=== PATIENT | female | born 2000 | race Two or more races ===

== ENCOUNTER 2023-02-24 22:01 | Emergency (ER) | payer MEDICAID, OTHER ==
[~2023-02-24] VITALS: Ht 165.1 cm; Wt 77.5 kg
[2023-02-24] MEDS ORDERED: LORazepam 0.5 MG TAB PO ONE (23:30)
[2023-02-24 23:45] LABS: Basophils # (auto) 0.1 10 ^3/uL (0-0.2); Basophils % (auto) 1.1 % (0.0-2.0); Eosinophils # (auto) 0.4 10 ^3/uL (0-0.8); Hematocrit 36.8 % (36.0-46.0); Lymphocytes # (auto) 1.8 10 ^3/uL (0.4-5.4); Lymphocytes % (auto) 21.6 % (10.0-50.0); Mean Corpuscular Hemoglobin 27.1 pg (28.0-32.0); Mean Corpuscular Hgb Conc. 32.5 g/dL (32.0-36.0); Mean Corpuscular Volume 83.3 fL (80.0-100.0); Monocytes # (auto) 0.4 10 ^3/uL (0-1.3); Monocytes % (auto) 5.2 % (0.0-12.0); Neutrophils # (auto) 5.5 10 ^3/uL (1.6-8.6); Neutrophils % (auto) 67.1 % (37.0-80.0); Red Blood Cells 4.42 10^6/uL (4.0-5.20); Red Cell Distribution Width 17.8 % (11.8-14.3); White Blood Cell 8.2 10^3/uL (4.4-10.8)
[2023-02-25 00:04] LABS: Albumin 3.7 g/dL (3.4-5.0); Calcium 8.6 mg/dL (8.5-10.1); Potassium 4.5 mmol/L (3.5-5.1)
[2023-02-25 00:05] LABS: Acetaminophen < 2.0 ug/mL (10-30); Salicylate < 1.7 mg/dL (2.8-20.0)
[2023-02-25 00:07] LABS: BUN/Creatinine Ratio 9.8 (10.0-20.0)
[2023-02-25 00:14] LABS: Bilirubin, Total 0.2 mg/dL (0.2-1.0); Total Protein 7.1 g/dL (6.4-8.2)
[2023-02-25] MEDS ORDERED: diphenhdrAMINE HCL 25 MG CAP PO ONE (04:00)
[2023-02-25 04:45] LABS: Alcohol, Urine < 3.0 mg/dL (0-10); Amphetamine Screen, Urine NEGATIVE (NEGATIVE); Barbiturate Scree,Urine NEGATIVE (NEGATIVE); Benzodiazephine Screen, Urine POSITIVE (NEGATIVE); Cannabinoid Screen, Urine NEGATIVE (NEGATIVE); Opiate Scree,Urine NEGATIVE (NEGATIVE)
[2023-02-25 04:59] LABS: Cocaine Screen, Urine NEGATIVE (NEGATIVE); Phencyclidine Screen, Urine NEGATIVE (NEGATIVE)
[2023-02-25 09:00] VITALS: BP 123/77
[2023-02-25] MEDS ORDERED: SERT50TA PO (11:33)
[2023-02-26] MEDS ORDERED: SERTRALINE HCL 50 MG TAB PO SCH (07:00)
== END 2023-02-25 13:03 | disposition home or self-care (01) ==
LOC: EDBD 22:01 → ER 22:01
DX: T47.1X2A Poisoning by other antacids and anti-gastric-secretion drugs, intentional self-harm, initial encounter (principal); Y92.89 Other specified places as the place of occurrence of the external cause
CPT/HCPCS: 36415; 70450; 71045; 80053; 80307; 80320; 80329; 84484; 85025

== ENCOUNTER 2024-09-17 09:08 | Emergency (ER) | payer MEDICAID ==
[~2024-09-17] VITALS: Ht 165.1 cm; Wt 68.0 kg
[~2024-09-17 09:08] MED LIST: SERT50TA PO
[2024-09-17 09:15] VITALS: BP 142/67; PULSE 89; RESP 18; TEMP 98.4; O2SAT 98
--- NOTE | 2024-09-17 09:51 | ED.PDOC ---
Back pain HPI HPI Comments A 24-YEAR-OLD FEMALE PRESENTS WITH A CHIEF COMPLAINT OF RIGHT MIDDLE RIBS MUSCULOSKELETAL PAIN. PATIENT STATES THAT HER PAIN IS MADE WORSE WITH SNEEZING, COUGHING, AND MOVEMENT, RESTING DECREASES THE PAIN. PATIENT DENIES ANY INJURIES OR TRAUMA PRIOR TO ONSET OF SYMPTOMS. PT DENIES FEVER, SOB, CHEST PAIN, ABD PAIN, NAUSEA, VOMITING AND OTHER COMPLAINTS. NO OTHER SYMPTOMS OR MODIFYING FACTORS PRESENT AT THIS TIME. Chief Complaint: Rib Pain Time Seen by MD: 09:43 Reviewed Notes: Nurses Notes, Medications, Allergies Allergies: Coded Allergies: NO KNOWN ALLERGIES (Unverified , 02/24/23) Home Meds Active Scripts Baclofen (Baclofen) 10 Mg Tab, 10 MG PO BID, #24 TAB Prov:RICHARD GOMEZ 09/17/24 Ibuprofen (Ibuprofen) 800 Mg Tab, 1 TAB PO TID, #30 TAB Prov:RICHARD GOMEZ 09/17/24 Sertraline Hcl (Zoloft) 50 Mg Tab, 1 TAB PO DAILY for 14 Days, #14 TAB 2 Refills Prov:LIMA BAR MD 02/25/23 Information Source: Patient Mode of Arrival: Ambulatory Timing: Days Duration: Since onset, Days Location of Back pain: Other (RIGHT SIDE RIBS PAIN ) Severity: Moderate Prehospital treatment: None Quality: Cramping Onset: Spontaneous History of: None Modifying Factors: Movement, Twisting, Breathing Associated signs and symptoms: None Past Medical History PAST MEDICAL HISTORY: Seizures Surgical History: Denies all surgeries BUSINESS DEVELOPMENT RECRUITER History: Denies all BUSINESS DEVELOPMENT RECRUITER Hx Family History Family History: Reviewed,noncontributory to illness Social History Smoker: Non-Smoker Alcohol: Denies ETOH Use Drugs: Denies Drug Use Lives In: Home Constitutional: denies: chills, diaphoresis, fatigue, fever, malaise, sweats, weakness, others EENTM: denies: blurred vision, double vision, ear bleeding, ear discharge, ear drainage, ear pain, ear ringing, eye pain, eye redness, hearing loss, mouth pain, mouth swelling, nasal discharge, nose bleeding, nose congestion, nose pain, photophobia, tearing, throat pain, throat swelling, voice changes, others Respiratory: denies: cough, hemoptysis, orthopnea, SOB at rest, shortness of breath, SOB with excertion, stridor, wheezing, others Cardiovascular: denies: chest pain, dizzy spells, diaphoresis, Dyspnea on ex ertion, edema, irregular heart beat, left arm pain, lightheadedness, palpitations, PND, syncope, others Gastrointestinal: denies: abdomen distended, abdominal pain, blood streaked bowels, constipated, diarrhea, dysphagia, difficulty swallowing, hematemesis, melena, nausea, poor appetite, poor fluid intake, rectal bleeding, rectal pain, vomiting, others Genitourinary: denies: abnormal vagina bleeding, burning, dyspareunia, dysuria, flank pain, frequency, hematuria, incontinence, pain, , vagina discharge, urgency, others Neurological: denies: dizziness, fainting, headache, left sided numbness, left sided weakness, numbness, paresthesia, pre-existing deficit, right sided numbness, right sided weakness, seizure, speech problems, tingling, tremors, weakness, others Musculoskeletal: reports: muscle pain; denies: back pain, gout, joint pain, joint swelling, muscle stiffness, neck pain, others Integumetry: denies: bruises, change in color, change in hair/nails, dryness, laceration, lesions, lumps, rash, wounds, others Allergic/Immunocompromised: denies: Difficulty Healing, Frequent Infections, Hives, Itching, others Hematologic/Lymphatic: denies: anemia, blood clots, easy bleeding, easy bruising, swollen glands, others Endocrine: denies: excessive hunger, excessive sweating, excessive thirst, excessive urination, flushing, intolerance to cold, intolerance to heat, unexplained weight gain, unexplained weight loss, others Psychiatric: denies: anxiety, bipolar disorder, depression, hopeless, panic disorder, schizophrenia, sleepless, suicidal, others All Other Systems: Reviewed and Negative Physical Exam General Appearance: No Apparent Distress, Normal HEENT: Normal ENT Inspection, PERRL/EOMI, Pharynx Normal, TMs Normal Neck: Full Range of Motion, Non-Tender, Normal, Normal Inspection Respiratory: Chest Non-Tender, Lungs Clear, No Accessory Muscle Use, No Respiratory Distress, Normal Breath Sounds Cardiovascular: No Edema, No JVD, No Murmur, No Gallop, Normal Peripheral Pulses, Regular Rate/Rhythm Breast Exam: Deferred Gastrointestinal: No Organomegaly, Non Tender, No Pulsatile Mass, Normal Bowel Sounds, Soft Genitalia: Deferred Pelvic: Deferred Rectal: Deferred Extremities: No calf tenderness, Normal capillary refill, Normal inspection, Normal range of motion, Non-tender, No pedal edema Musculoskeletal : Location: Right Apperance: Tenderness (RIGHT MIDDLE RIBS, NO BONY TENDERNESS, SWELLING AND DEFORMITY. ) Neurologic: Alert, timing adjuster II-XII nml as Tested, No Motor Deficits, Normal Affect, Normal Mood, No Sensory Deficits Cerebellar Function: Normal Reflexes: Normal Skin: Dry, Normal Color, Warm Peripheral Pulses: 2+ carotid (R), 2+ carotid (L) Lymphatic: No Adenopathy Was a procedure done? Was a procedure done?: No Back Pain Differential Dx Differential Diagnosis: Musculoskeletal Pain, Strain, Other X-Ray, Labs, Meds, VS Vital Signs Date Time Temp Pulse Resp B/P (MAP) Pulse Ox O2 Delivery O2 Flow Rate FiO2 09/17/24 09:15 98.4 89 18 142/67 (92) 98 Current Medications Medications (Trade) Dose Ordered Sig/Gareth Route Start Time Stop Time Status Last Admin Ketorolac Tromethamine (Toradol Injection) 60 mg ONCE ONCE IM 09/17/24 10:00 09/17/24 10:01 DC 09/17/24 10:01 PATIENT: NERY BUCKLEYCCT: [id number]: [id number] : 2000 LOC: ER ROOM / BED: / AGE / SEX: 24 / F ADM STATUS: REG ER SERVICE [id number] ORDERING PHYSICIAN: RICHARD GOMEZ PROCEDURE(s): CXR2 - CHEST TWO VIEWS ROUTINE REASON: RIGHT SIDE MIDDLE RIBS PAIN, NO INJURY ORDER NUMBER(s): [id number], ACCESSION NUMBER(s): [id number] Procedure: XY CHEST TWO VIEWS ROUTINE 09/17/2024 09:49 AM Indication: RIGHT SIDE MIDDLE RIBS PAIN, NO INJURY Comparison: None TECHNIQUE: XY CHEST TWO VIEWS ROUTINE FINDINGS: Medical devices: None. Cardiomediastinal: The heart is normal in size. Pulmonary vasculature is within normal limits. Lungs: No focal pulmonary opacity is seen. The costophrenic angles are clear. No pneumothorax. Bones/soft tissues: No acute abnormality is noted. Bilateral nipple piercing noted. IMPRESSION: 1. No acute cardiopulmonary disease. ATED BY: LEXII TIRADO MD DICTATED DATE/TIME: 09/17/24 100 SIGNED BY: LEXII TIRADO MD SIGNED DATE/TIME: 09/17/24 1004 CC: X-Ray, Labs, Meds, VS Comment EXTERNAL MEDICAL RECORDS REVIEWED: [NONE] INDEPENDENT HISTORIANS: [NONE] SOCIAL DETERMINANTS OF HEALTH: [NONE] LABS ORDERED: NONE REVIEWED AND INTERPRETED RESULTS: NONE IMAGING ORDERED: NONE TREATMENTS ORDERED: TORADOL 60MG IM PROCEDURES PERFORMED: NONE CRITICAL CARE TIME: NONE I HAVE DISCUSSED THE PATIENT WITH THE ATTENDING PHYSICIAN DR. LOPEZ AND HE AGREES WITH THE PATIENT'S PLAN OF CARE AND DISPOSITION. GIVEN THE HISTORY AND PRESENT ILLNESS OF THE PATIENT, AFTER REVIEWING LABS, IMAGING, AND COURSE OF TREATMENT ADMINISTERED DURING THEIR ED VISIT, THERE IS LOW SUSPICION FOR RED FLAG FINDINGS. BASED ON HISTORY OF PRESENT ILLNESS, AND PHYSICAL EXAM, PATIENT WILL BE DISCHARGED HOME. DISCUSSED PLAN FOR DISCHARGE HOME WITH RX. MEDICATION WARNINGS GIVEN. SHARED DECISION MAKING: DISCUSSED WITH PATIENT THAT THEIR WORKUP WAS NORMAL. PATIENT INSTRUCTED TO FOLLOW UP WITH PRIMARY CARE PROVIDER IN 1-2 DAYS FOR RE- EVALUATION OF SYMPTOMS. PATIENT VERBALIZES UNDERSTANDING TO RETURN TO ED FOR NEW OR WORSENING SYMPTOMS OR IF FOLLOW UP WITH PCP CANNOT BE OBTAINED. PATIENT FEELS COMFORTABLE GOING HOME AT THIS TIME. ALL QUESTIONS ADDRESSED AT TIME OF DISCHARGE. Time of 1ST Reevaluation: 10:30 Reevaluation 1ST: Improved Patient Education/Counseling: Diagnosis, Treatment, Prognosis Family Education/Counseling: Diagnosis, Treatment, Need For Follow Up Medical Screening: No EMC Exist At This Time Departure 1 Departure Time of Disposition: 10:30 Impression: Primary Impression: Intercostal muscle strain Qualified Codes: S29.011A - Strain of muscle and tendon of front wall of thorax, initial encounter Disposition: HOME / SELF CARE / HOMELESS Condition: Stable Additional Instructions: FOLLOW UP WITH YOUR PCP IN 1-2 DAYS. RETURN TO THE ER IF YOUR SYMPTOMS WORSEN. e-Prescriptions Baclofen (Baclofen) 10 Mg Tab 10 MG PO BID, #24 TAB Prov: RICHARD GOMEZ 09/17/24 Ibuprofen (Ibuprofen) 800 Mg Tab 1 TAB PO TID, #30 TAB Prov: RICHARD GOMEZ 09/17/24 Discharged With: Self, Relative (Mother) Critical Care Note Critical Care Time?: No Stability Stability form required: No Heart Score Heart Score: Heart Score Response (Comments) Value History N/A 0 EKG N/A 0 Age N/A 0 Risk Factors N/A 0 Troponin N/A 0 Total 0 I personally scribed for RICHARD GOMEZ ([email or web address]) on 09/17/24 at 09:51. Electr onically submitted by Khalif Dong ([email or web address]). RICHARD GOMEZ Sep 17, 2024 09:51
[2024-09-17] MEDS: KETOROLAC TROMETH 60MG/2ML VIAL IM ONE (10:01)
--- NOTE | 2024-09-17 10:06 | DVH ---
Procedure: XY CHEST TWO VIEWS ROUTINE 09/17/2024 09:49 AM Indication: RIGHT SIDE MIDDLE RIBS PAIN, NO INJURY Comparison: None TECHNIQUE: XY CHEST TWO VIEWS ROUTINE FINDINGS: Medical devices: None. Cardiomediastinal: The heart is normal in size. Pulmonary vasculature is within normal limits. Lungs: No focal pulmonary opacity is seen. The costophrenic angles are clear. No pneumothorax. Bones/soft tissues: No acute abnormality is noted. Bilateral nipple piercing noted. IMPRESSION: 1. No acute cardiopulmonary disease.
[2024-09-17] MEDS ORDERED: BACL10TA PO (10:13)
[2024-09-17] MEDS ORDERED: IBUP-1456 PO (10:13)
== END 2024-09-17 10:23 | disposition home or self-care (01) ==
LOC: ER 09:08
DX: S29.011A Strain of muscle and tendon of front wall of thorax, initial encounter (principal); Z79.1 Long term (current) use of non-steroidal anti-inflammatories (NSAID); Z79.899 Other long term (current) drug therapy; X58.XXXA Exposure to other specified factors, initial encounter; Y93.89 Activity, other specified; Y92.89 Other specified places as the place of occurrence of the external cause; Y99.8 Other external cause status
CPT/HCPCS: 71046; 96372; 99283; J1885